=== PATIENT | male | born 1990 | race Caucasian/White ===

== ENCOUNTER 2016-11-01 18:45 | Emergency (ER) | payer OTHER ==
[~2016-11-01] VITALS: Ht 185.4 cm; Wt 154.7 kg
[2016-11-01 22:03] VITALS: BP 155/108
== END 2016-11-01 20:24 | disposition home or self-care (01) ==
LOC: ED 18:45
DX: R51 Headache (principal)
CPT/HCPCS: J1885

== ENCOUNTER 2017-05-09 01:38 | Emergency (ER) | payer OTHER ==
[~2017-05-09] VITALS: Ht 188 cm; Wt 152.9 kg
[2017-05-09 01:47] VITALS: Ht 188 cm; Wt 152.9 kg
[2017-05-09 05:13] VITALS: BP 137/81
== END 2017-05-09 05:13 | disposition home or self-care (01) ==
LOC: ED 01:38
DX: S60.452A Superficial foreign body of right middle finger, initial encounter (principal); X58.XXXA Exposure to other specified factors, initial encounter; Y93.89 Activity, other specified; Y99.8 Other external cause status; Y92.89 Other specified places as the place of occurrence of the external cause
CPT/HCPCS: 90715; Q0092